=== PATIENT | male | born 1970 | race Caucasian/White ===

== ENCOUNTER → 2021-04-05 01:59 | Outpatient (CLI) | payer BC, SELFPAY ==
[2021-04-05 18:14] LABS: SARS-CoV-2 RNA PCR Negative
== END ==
PROVIDERS: PCP Family Medicine; Visit Provider Family Medicine
DX: J02.9 Acute pharyngitis, unspecified (principal); R05.9 Cough, unspecified; R07.89 Other chest pain; R09.81 Nasal congestion; R51.9 Headache, unspecified; Z20.822 Contact with and (suspected) exposure to COVID-19
CPT/HCPCS: C9803; U0003; U0005

== ENCOUNTER 2022-06-19 08:21 | Outpatient (CLI) | payer BC, SELFPAY ==
--- NOTE | 2022-06-25 20:09 | WPDHOMESLEEP ---
Sleep Study - Home Unattended Date of Study: 06/19/22 Ordering Provider: Christos Huntley MD Interpreting Provider: Tawanna Kitchen, DO Home Sleep Study Type: Apnea Link Air Height: 1.78 m Weight: 88.451 kg Body Mass Index: 27.9 Neck Circumference (inches): 17.75 [place]: 5 Reason for Sleep Study Poor sleep, snoring Sleep History The patient is a 51-year-old male with hyperlipidemia and elevated liver enzymes had a sleep study ordered evaluation sleep apnea. The patient denies awakening from sleep short of breath. He denies awakening at night with heartburn, belching or cough. He frequently snores and is constantly loudly enough that others complain. He occasionally has trouble sleeping when he has a cold. He denies waking up gasping for air throughout the night. He rarely sweats excessively at night. He denies having heart palpitations or irregular heartbeats during the night. He rarely falls asleep during the day but never while driving. He denies sleep paralysis, cataplexy and hypnagogic / hypnopompic hallucinations. He denies having trouble at school or work due to sleepiness. He denies feeling afraid of going to sleep. He denies having nightmares. He rarely remembers his dreams. He denies having thoughts racing through his mind. He denies feeling sad or depressed. He rarely has anxiety. He rarely has muscular tension. He rarely notices parts of his body jerk. He rarely kicks during the night. He denies having crawling and aching feelings in his legs as well as leg pain during the night. He denies grinding his teeth during sleep and rarely awakens with morning jaw pain. He denies being bothered by pain during the day and denies being awakened by pain during the night. He rarely wakes up feeling stiff in the morning. He rarely wakes up with sore or achy muscles. He denies waking up with pain in the neck, spine and other joints. He goes to bed at 9:30 p.m. on weekdays and 10:30 p.m. on weekends. It takes him 5-10 minutes to fall asleep. He wakes up 1-2 times throughout the night for unknown reasons. He is able to fall back asleep within 10 minutes. He wakes up between 5-6 a.m. on weekdays and 7:00 a.m. on the weekends. He typically gets 7 hours of sleep per night. He will stay in bed for 5-10 minutes after waking up in the morning. He currently lives with his and 3 children. He does not consume any caffeinated beverages within 2 hours of bedtime. He does not engage in physical exercise before bedtime. He will watch television before falling asleep. He denies taking naps in the afternoon or the evening. He drinks 1 cup of coffee per day. He will drink alcohol occasionally on the weekends. He denies tobacco and recreational drug use. [facility] Social History Social History Smoking status: Never smoker Medications Home Medications Medication Instructions Recorded Confirmed Type No Home Medications 05/31/22 05/31/22 History Sleep Procedure This test was performed using 4 channel monitoring including respiratory effort channel, snoring channel, heart rate channel, and oxygen saturation channel. This study was scored using [facility] guidelines. Sleep Architecture The patient had a total recording time of 8 hours 36 minutes and total monitoring time of 8 hours. The patient spent 3 hours 26 minutes, 43% of total monitoring time in the supine position. Respiratory Analysis The patient had an overall AHI of 6.7 and a central apnea index of 0.2. The supine AHI was 8.1. The patient had 7 apneas and 47 hypopneas. No Pankaj-Dyson respirations were seen. Oximetry Data The patient had a baseline oxygen saturation of 97% and an average oxygen saturation of 95%. The lowest recorded oxygen saturation was 85%. The patient had 49 desaturations that were 4% or greater resulting in an oxygen desaturation index of 5.8. The patient spent 0 minutes
[2022-06-25 20:20] VITALS: BMI 27.9
== END 2022-06-21 10:02 | disposition home or self-care (01) ==
PROVIDERS: PCP Family Medicine; Visit Provider Family Medicine
DX: G47.30 Sleep apnea, unspecified (principal); G47.33 Obstructive sleep apnea (adult) (pediatric)
CPT/HCPCS: 95806